=== PATIENT | male | born 1930 | race Caucasian/White ===

== ENCOUNTER 2018-03-16 20:46 | Emergency (ER) | payer OTHER ==
[~2018-03-16] VITALS: Ht 157.5 cm; Wt 68.0 kg
[2018-03-16 21:04] VITALS: Ht 157.5 cm; Wt 68.0 kg
[2018-03-16 21:27] LABS: BASOPHIL % 2.1 % (0-2); PLATELET COUNT 144 x10^3mcL (130-400); RED CELL DISTRIBUTION WIDTH 13.9 % (11.5-14.5)
[2018-03-16 21:41] LABS: CALCIUM 8.5 mg/dL (8.5-10.1); CARBON DIOXIDE 24.3 mmol/L (21-32); CHLORIDE SERUM 104 mmol/L (98-107); GLUCOSE SERUM 337 mg/dL (74-106); POTASSIUM SERUM 3.9 mmol/L (3.5-5.1); SODIUM SERUM 137 mmol/L (136-145)
[2018-03-16 21:45] LABS: ALKALINE PHOSPHATASE 98 U/L (46-116); ALT/SGPT 13 U/L (16-63); AST/SGOT 12 U/L (15-37); BILIRUBIN TOTAL 1.03 mg/dL (0.20-1.00); CHOLESTEROL 185 mg/dL (<200); HDL CHOLESTEROL 34 mg/dL (40-60); MAGNESIUM 1.8 mg/dL (1.8-2.4); TOTAL PROTEIN, SERUM 6.3 g/dL (6.4-8.2)
[2018-03-16 23:45] VITALS: BP 116/51
== END 2018-03-16 23:45 | disposition home or self-care (01) ==
LOC: ED 20:46
PROVIDERS: Emergency Medicine
DX: R51 Headache (principal); G47.00 Insomnia, unspecified; I10 Essential (primary) hypertension; E11.65 Type 2 diabetes mellitus with hyperglycemia; Z79.84 Long term (current) use of oral hypoglycemic drugs
CPT/HCPCS: 82962; J1200; J1885; J7030; Q0092

== ENCOUNTER 2018-07-04 05:20 | Inpatient (IN) | payer OTHER ==
[~2018-07-04] VITALS: Ht 160 cm; Wt 108.2 kg
[2018-07-04 06:40] LABS: BASOPHIL % 0.4 % (0-2); CALCIUM 8.4 mg/dL (8.5-10.1); CARBON DIOXIDE 28.6 mmol/L (21-32); CHLORIDE SERUM 105 mmol/L (98-107); CREATININE SERUM 0.9 mg/dL (0.7-1.3); GLUCOSE SERUM 70 mg/dL (74-106); PLATELET COUNT 183 x10^3mcL (130-400); POTASSIUM SERUM 3.8 mmol/L (3.5-5.1); SODIUM SERUM 142 mmol/L (136-145)
[2018-07-04 06:42] LABS: RED CELL DISTRIBUTION WIDTH 15.6 % (11.5-14.5)
[2018-07-04 06:54] LABS: CK-MB 1.3 ng/mL (0-3.6)
[2018-07-04 06:58] LABS: T3 TOTAL 1.2 ng/mL
[2018-07-04 07:02] LABS: ALKALINE PHOSPHATASE 147 U/L (46-116); ALT/SGPT 20 U/L (16-63); AST/SGOT 21 U/L (15-37); BILIRUBIN TOTAL 0.76 mg/dL (0.20-1.00); C REACTIVE PROTEIN 7.5 mg/dL (<=0.9)
[2018-07-04 08:03] LABS: FREE T4 1.26 ng/dL (0.76-1.46)
[2018-07-04 08:27] LABS: FREE THYROXINE INDEX 3.6 ug/dL (1.4-4.5); T4(THYROXINE) 9.7 ug/dL (4.7-13.3)
[2018-07-04] MEDS ORDERED: FREESTYLE LANC1 EACH (08:32)
[2018-07-04] MEDS ORDERED: FLO4 PO (08:32)
[2018-07-04] MEDS ORDERED: COLACE100 MG PO (08:32)
[2018-07-04] MEDS ORDERED: CELEXA10 MG PO (08:33)
[2018-07-04] MEDS ORDERED: NOR5 PO (08:33)
[2018-07-04] MEDS ORDERED: METOPROLOL TART25 M1 PO (08:33)
[2018-07-04] MEDS ORDERED: RESTORIL30 MG PO (08:34)
[2018-07-04] MEDS ORDERED: RESTORIL15 MG GT (08:34)
[2018-07-04] MEDS ORDERED: LEVEMIR FLEX100 U/M1 SC (08:34)
[2018-07-04] MEDS ORDERED: NOR10T (08:35)
[2018-07-04] MEDS ORDERED: RES30 PO (08:35)
[2018-07-04] MEDS ORDERED: TYLENOL EXTRA500 M3 PO (08:35)
[2018-07-04] MEDS ORDERED: LORAZEPAM0.5 MG PO (08:35)
[2018-07-04 08:43] LABS: ERYTHROCYTE SED RATE 40 mm/hr (0-20)
[2018-07-04 08:55] LABS: UA SPECIFIC GRAVITY 1.025 (1.005-1.035); microscopic required? YES; urine erythrocyte NEGATIVE (NEGATIVE)
[2018-07-04 09:53] VITALS: BP 143/57
[2018-07-04 10:58] VITALS: BP 143/57
[2018-07-04 13:05] VITALS: BP 133/76
[2018-07-04 16:51] VITALS: BP 151/60
[2018-07-04 19:15] VITALS: BP 158/66
[2018-07-05 05:48] VITALS: BP 156/82
[2018-07-05 07:48] LABS: PLATELET COUNT 187 x10^3mcL (130-400)
[2018-07-05 07:53] LABS: BASOPHIL % 0 % (0-2); RED CELL DISTRIBUTION WIDTH 15.7 % (11.5-14.5)
[2018-07-05 07:57] LABS: CARBON DIOXIDE 24.5 mmol/L (21-32); CHLORIDE SERUM 103 mmol/L (98-107); CREATININE SERUM 0.9 mg/dL (0.7-1.3); GLUCOSE SERUM 351 mg/dL (74-106); POTASSIUM SERUM 4.1 mmol/L (3.5-5.1); SODIUM SERUM 138 mmol/L (136-145)
[2018-07-05 08:00] VITALS: BP 124/69
[2018-07-05 12:15] VITALS: BP 156/74
[2018-07-05] MEDS ORDERED: PREDNISONE20 MG PO (12:56)
[2018-07-05] MEDS ORDERED: PREDNISONE10 MG PO (12:56)
[2018-07-05] MEDS ORDERED: ZIT250 PO (12:56)
[2018-07-05 13:14] VITALS: BP 156/74
[2018-07-07 09:18] VITALS: Ht 160 cm; Wt 108.2 kg
== END 2018-07-05 13:35 | disposition home or self-care (01) | DRG 202 ==
LOC: ED 05:20 → DU 08:32
PROVIDERS: Specialist; ADMIT General Practice
DX: J20.9 Acute bronchitis, unspecified (principal); E44.1 Mild protein-calorie malnutrition; E11.9 Type 2 diabetes mellitus without complications; I10 Essential (primary) hypertension; N40.0 Benign prostatic hyperplasia without lower urinary tract symptoms; Z22.322 Carrier or suspected carrier of Methicillin resistant Staphylococcus aureus
CPT/HCPCS: 36600; 82962; 84439; 87804; C9113; J0132; J0456; J1644; J2920; J7030; J7050; J7620; Q0092

== ENCOUNTER 2018-07-15 03:44 | Emergency (ER) | payer OTHER ==
[~2018-07-15 03:44] MED LIST: CELEXA10 MG PO; COLACE100 MG PO; FLO4 PO; FREESTYLE LANC1 EACH; LEVEMIR FLEX100 U/M1 SC; LORAZEPAM0.5 MG PO; METOPROLOL TART25 M1 PO; NOR10T; NOR5 PO; PREDNISONE10 MG PO; PREDNISONE20 MG PO; RES30 PO; RESTORIL15 MG GT; RESTORIL30 MG PO; TYLENOL EXTRA500 M3 PO; ZIT250 PO
[2018-07-15 04:36] LABS: BASOPHIL % 0.1 % (0-2); PLATELET COUNT 188 x10^3mcL (130-400)
[2018-07-15 04:38] LABS: RED CELL DISTRIBUTION WIDTH 14.9 % (11.5-14.5)
[2018-07-15 04:44] LABS: CALCIUM 8.8 mg/dL (8.5-10.1); CARBON DIOXIDE 30.7 mmol/L (21-32); CHLORIDE SERUM 104 mmol/L (98-107); CREATININE SERUM 0.9 mg/dL (0.7-1.3); GLUCOSE SERUM 90 mg/dL (74-106); POTASSIUM SERUM 3.6 mmol/L (3.5-5.1); SODIUM SERUM 139 mmol/L (136-145)
[2018-07-15 04:49] LABS: ALKALINE PHOSPHATASE 174 U/L (46-116); ALT/SGPT 17 U/L (16-63); AST/SGOT 23 U/L (15-37); BILIRUBIN TOTAL 0.54 mg/dL (0.20-1.00); TOTAL PROTEIN, SERUM 7.2 g/dL (6.4-8.2)
[2018-07-15 04:50] LABS: ALBUMIN 2.8 g/dL (3.4-5.0)
[2018-07-15 04:56] LABS: microscopic required? NO
[2018-07-15 05:01] VITALS: BP 116/56
[2018-07-15 05:09] LABS: UA SPECIFIC GRAVITY 1.015 (1.005-1.035); urine erythrocyte NEGATIVE (NEGATIVE)
== END 2018-07-15 08:59 | disposition home or self-care (01) ==
LOC: ED 03:44
PROVIDERS: Emergency Medicine
DX: M84.58XA Pathological fracture in neoplastic disease, other specified site, initial encounter for fracture (principal); C79.82 Secondary malignant neoplasm of genital organs; R91.8 Other nonspecific abnormal finding of lung field; D72.829 Elevated white blood cell count, unspecified; G89.29 Other chronic pain; I10 Essential (primary) hypertension; E11.9 Type 2 diabetes mellitus without complications
CPT/HCPCS: 36415

== ENCOUNTER 2018-08-09 11:22 | Inpatient (IN) | payer OTHER ==
[~2018-08-09] VITALS: Ht 165.1 cm; Wt 80.3 kg
[~2018-08-09 11:22] MED LIST changes: +LEVEMIR FLEX100 U/M1 INJ; -LEVEMIR FLEX100 U/M1 SC
[2018-08-09 12:01] LABS: CALCIUM 8.2 mg/dL (8.5-10.1); CARBON DIOXIDE 29.3 mmol/L (21-32); CHLORIDE SERUM 105 mmol/L (98-107); CREATININE SERUM 0.9 mg/dL (0.7-1.3); GLUCOSE SERUM 123 mg/dL (74-106); POTASSIUM SERUM 3.4 mmol/L (3.5-5.1); SODIUM SERUM 142 mmol/L (136-145)
[2018-08-09 12:10] LABS: BASOPHIL % 0 % (0-2); PLATELET COUNT 126 x10^3mcL (130-400); RED CELL DISTRIBUTION WIDTH 15.1 % (11.5-14.5)
[2018-08-09 12:11] LABS: ALKALINE PHOSPHATASE 163 U/L (46-116); ALT/SGPT 20 U/L (16-63); BILIRUBIN TOTAL 0.89 mg/dL (0.20-1.00); LIPASE 50 IU/L (73-393)
[2018-08-09 12:12] LABS: ALBUMIN 2.9 g/dL (3.4-5.0)
[2018-08-09 12:17] LABS: CK-MB 0.6 ng/mL (0-3.6)
[2018-08-09 12:31] LABS: AST/SGOT 22 U/L (15-37)
[2018-08-09] MEDS ORDERED: CELEXA40 MG PO (13:03)
[2018-08-09] MEDS ORDERED: RES30 PO (13:03)
[2018-08-09 14:13] LABS: CHOLESTEROL/HDL RATIO 2.7; MAGNESIUM 1.7 mg/dL (1.8-2.4)
[2018-08-09 14:21] LABS: FREE T4 1.22 ng/dL (0.76-1.46); FREE THYROXINE INDEX 2.9 ug/dL (1.4-4.5); T4(THYROXINE) 8.1 ug/dL (4.7-13.3)
[2018-08-09 14:44] LABS: T3 TOTAL 0.7 ng/mL
[2018-08-09 16:01] VITALS: BP 122/53
[2018-08-09 18:02] VITALS: Ht 165.1 cm; Wt 80.3 kg
[2018-08-09 18:14] LABS: UA SPECIFIC GRAVITY >=1.030 (1.005-1.035); microscopic required? YES; urine erythrocyte NEGATIVE (NEGATIVE)
[2018-08-09 21:39] VITALS: BP 128/63
[2018-08-10 00:30] VITALS: BP 128/63
[2018-08-10 04:01] LABS: BASOPHIL % 0.4 % (0-2)
[2018-08-10 04:08] LABS: PLATELET COUNT 126 x10^3mcL (130-400); RED CELL DISTRIBUTION WIDTH 14.9 % (11.5-14.5)
[2018-08-10 04:47] LABS: CARBON DIOXIDE 29.1 mmol/L (21-32); CHLORIDE SERUM 107 mmol/L (98-107); SODIUM SERUM 143 mmol/L (136-145)
[2018-08-10 04:58] LABS: GLUCOSE SERUM 53 mg/dL (74-106)
[2018-08-10 05:56] VITALS: BP 104/57
[2018-08-10 09:50] VITALS: BP 151/65
[2018-08-10 13:06] VITALS: BP 135/45
[2018-08-10 16:59] VITALS: BP 113/51
[2018-08-10 21:27] VITALS: BP 127/58
[2018-08-11 05:40] VITALS: BP 85/49
[2018-08-11 06:33] LABS: CALCIUM 7.9 mg/dL (8.5-10.1); CARBON DIOXIDE 27.3 mmol/L (21-32); CHLORIDE SERUM 99 mmol/L (98-107); CREATININE SERUM 1.2 mg/dL (0.7-1.3); GLUCOSE SERUM 388 mg/dL (74-106); POTASSIUM SERUM 4.4 mmol/L (3.5-5.1); SODIUM SERUM 132 mmol/L (136-145)
[2018-08-11 07:17] LABS: PLATELET COUNT 118 x10^3mcL (130-400)
[2018-08-11 08:56] VITALS: BP 136/52
[2018-08-11 10:31] LABS: BAND NEUTROPHIL 19 % (0-10); BASOPHIL 0 % (0-2); MONOCYTE 7 % (0-7); SEGMENTED NEUTROPHILS 67 % (37-75)
[2018-08-11 10:32] LABS: PLATELET MORPHOLOGY GIANT PLATELET SEEN; ovalocyte/elliptocyte 1+; rbc morphology (normal/abnorm) ABNORMAL (NORMAL); tear drop cell (dacryocyte) 1+
[2018-08-11 13:00] VITALS: BP 136/59
[2018-08-11 17:19] VITALS: BP 124/59
[2018-08-11 21:31] VITALS: BP 104/65
[2018-08-11 23:32] VITALS: BP 106/63
[2018-08-12 04:23] VITALS: BP 141/66
[2018-08-12 06:02] LABS: BASOPHIL % 0.2 % (0-2)
[2018-08-12 06:26] LABS: CALCIUM 7.9 mg/dL (8.5-10.1); CARBON DIOXIDE 28.7 mmol/L (21-32); CHLORIDE SERUM 101 mmol/L (98-107); CREATININE SERUM 0.8 mg/dL (0.7-1.3); GLUCOSE SERUM 88 mg/dL (74-106); POTASSIUM SERUM 3.6 mmol/L (3.5-5.1); SODIUM SERUM 138 mmol/L (136-145)
[2018-08-12 06:34] LABS: PLATELET COUNT 110 x10^3mcL (130-400); RED CELL DISTRIBUTION WIDTH 14.9 % (11.5-14.5)
[2018-08-12 08:39] VITALS: BP 141/75
[2018-08-12 13:04] VITALS: BP 119/60
[2018-08-12 17:05] VITALS: BP 145/71
[2018-08-13 06:27] VITALS: BP 146/65
[2018-08-13 09:08] VITALS: BP 120/56
[2018-08-13 13:54] VITALS: BP 153/78
[2018-08-13 14:27] VITALS: BP 153/78
[2018-08-13 17:25] VITALS: BP 128/65
[2018-08-13 21:12] VITALS: BP 136/71
[2018-08-14 05:49] VITALS: BP 148/88
[2018-08-14 07:29] LABS: BASOPHIL % 0.2 % (0-2); PLATELET COUNT 164 x10^3mcL (130-400); RED CELL DISTRIBUTION WIDTH 15.1 % (11.5-14.5)
[2018-08-14 07:39] LABS: CALCIUM 8.4 mg/dL (8.5-10.1); CARBON DIOXIDE 24.4 mmol/L (21-32); CHLORIDE SERUM 95 mmol/L (98-107); CREATININE SERUM 1.1 mg/dL (0.7-1.3); GLUCOSE SERUM 327 mg/dL (74-106); POTASSIUM SERUM 4.1 mmol/L (3.5-5.1); SODIUM SERUM 132 mmol/L (136-145)
[2018-08-14 10:02] VITALS: BP 137/56
[2018-08-14 12:25] VITALS: BP 135/60
[2018-08-14 17:38] VITALS: BP 146/68
[2018-08-14 21:03] VITALS: BP 127/73
[2018-08-15 05:22] VITALS: BP 115/70
[2018-08-15 09:41] VITALS: BP 105/60
[2018-08-15 13:24] VITALS: BP 112/67
[2018-08-15 17:00] VITALS: BP 138/55
[2018-08-15 19:51] VITALS: BP 124/56
[2018-08-16] VITALS (7 sets, daily range): BP systolic 127–155; BP diastolic 67–95
[2018-08-17 03:15] VITALS: BP 136/76
[2018-08-17 05:25] LABS: CALCIUM 8.4 mg/dL (8.5-10.1); CARBON DIOXIDE 30.5 mmol/L (21-32); CHLORIDE SERUM 100 mmol/L (98-107); CREATININE SERUM 1.3 mg/dL (0.7-1.3); GLUCOSE SERUM 416 mg/dL (74-106); MAGNESIUM 2.1 mg/dL (1.8-2.4); POTASSIUM SERUM 3.1 mmol/L (3.5-5.1); SODIUM SERUM 141 mmol/L (136-145)
[2018-08-17 05:38] LABS: BASOPHIL % 0.1 % (0-2); PLATELET COUNT 243 x10^3mcL (130-400)
[2018-08-17 05:48] LABS: RED CELL DISTRIBUTION WIDTH 15.3 % (11.5-14.5)
[2018-08-17 07:30] VITALS: BP 149/74
[2018-08-17 11:25] VITALS: BP 145/70
[2018-08-17 15:23] VITALS: BP 127/73
[2018-08-17 19:25] VITALS: BP 111/88
[2018-08-17 23:30] VITALS: BP 125/71
[2018-08-18 03:06] VITALS: BP 138/84
[2018-08-18 04:59] LABS: CALCIUM 8.5 mg/dL (8.5-10.1); CARBON DIOXIDE 35.2 mmol/L (21-32); CHLORIDE SERUM 103 mmol/L (98-107); CREATININE SERUM 1.3 mg/dL (0.7-1.3); GLUCOSE SERUM 344 mg/dL (74-106); MAGNESIUM 2.2 mg/dL (1.8-2.4); POTASSIUM SERUM 3.3 mmol/L (3.5-5.1); SODIUM SERUM 145 mmol/L (136-145)
[2018-08-18 05:26] LABS: BASOPHIL % 0.1 % (0-2); PLATELET COUNT 282 x10^3mcL (130-400); RED CELL DISTRIBUTION WIDTH 15.1 % (11.5-14.5)
[2018-08-18 08:00] VITALS: BP 135/71
[2018-08-18 12:00] VITALS: BP 109/64
[2018-08-18 16:00] VITALS: BP 112/64
[2018-08-18 17:58] VITALS: BP 125/61
[2018-08-18 20:34] VITALS: BP 128/71
[2018-08-19 06:18] VITALS: BP 108/60
[2018-08-19 07:14] LABS: BASOPHIL % 0.2 % (0-2); PLATELET COUNT 321 x10^3mcL (130-400)
[2018-08-19 07:15] LABS: CALCIUM 8.3 mg/dL (8.5-10.1); CARBON DIOXIDE 38.7 mmol/L (21-32); CHLORIDE SERUM 103 mmol/L (98-107); CREATININE SERUM 1.2 mg/dL (0.7-1.3); GLUCOSE SERUM 242 mg/dL (74-106); PHOSPHOROUS 3.7 mg/dL (2.5-4.9); POTASSIUM SERUM 3.2 mmol/L (3.5-5.1); RED CELL DISTRIBUTION WIDTH 14.9 % (11.5-14.5); SODIUM SERUM 149 mmol/L (136-145)
[2018-08-19 09:04] VITALS: BP 105/54
[2018-08-19 10:22] VITALS: BP 119/60
[2018-08-19 13:15] VITALS: BP 114/75
[2018-08-19 17:44] VITALS: BP 109/55
[2018-08-20 07:27] LABS: BASOPHIL % 0.3 % (0-2); PLATELET COUNT 288 x10^3mcL (130-400); RED CELL DISTRIBUTION WIDTH 14.7 % (11.5-14.5)
[2018-08-20 07:30] LABS: CALCIUM 7.9 mg/dL (8.5-10.1); CARBON DIOXIDE 38.4 mmol/L (21-32); CHLORIDE SERUM 100 mmol/L (98-107); CREATININE SERUM 1.2 mg/dL (0.7-1.3); GLUCOSE SERUM 286 mg/dL (74-106); POTASSIUM SERUM 3.4 mmol/L (3.5-5.1); SODIUM SERUM 143 mmol/L (136-145)
[2018-08-20 08:38] VITALS: BP 104/62
[2018-08-20 08:57] VITALS: BP 104/62
[2018-08-20 13:29] VITALS: BP 106/50
[2018-08-20 15:54] VITALS: BP 110/65
[2018-08-20 20:49] VITALS: BP 119/60
[2018-08-21 06:21] VITALS: BP 101/56
[2018-08-21 07:30] LABS: BASOPHIL % 0.3 % (0-2); PLATELET COUNT 257 x10^3mcL (130-400)
[2018-08-21 08:05] LABS: CALCIUM 7.8 mg/dL (8.5-10.1); CARBON DIOXIDE 34.2 mmol/L (21-32); CHLORIDE SERUM 100 mmol/L (98-107); CREATININE SERUM 1.2 mg/dL (0.7-1.3); GLUCOSE SERUM 273 mg/dL (74-106); MAGNESIUM 2.1 mg/dL (1.8-2.4); PHOSPHOROUS 3.2 mg/dL (2.5-4.9); POTASSIUM SERUM 3.5 mmol/L (3.5-5.1); SODIUM SERUM 142 mmol/L (136-145)
[2018-08-21 09:01] VITALS: BP 109/48
[2018-08-21 12:18] VITALS: BP 103/49
[2018-08-21 22:21] VITALS: BP 107/51
[2018-08-22 05:25] VITALS: BP 103/50
[2018-08-22 06:16] LABS: BASOPHIL % 0.3 % (0-2); PLATELET COUNT 265 x10^3mcL (130-400)
[2018-08-22 06:20] LABS: CALCIUM 7.8 mg/dL (8.5-10.1); CARBON DIOXIDE 37.6 mmol/L (21-32); CHLORIDE SERUM 104 mmol/L (98-107); CREATININE SERUM 1.2 mg/dL (0.7-1.3); GLUCOSE SERUM 155 mg/dL (74-106); MAGNESIUM 2.2 mg/dL (1.8-2.4); PHOSPHOROUS 3.2 mg/dL (2.5-4.9); POTASSIUM SERUM 3.3 mmol/L (3.5-5.1); SODIUM SERUM 145 mmol/L (136-145)
[2018-08-22 06:48] LABS: RED CELL DISTRIBUTION WIDTH 15.9 % (11.5-14.5)
[2018-08-22 10:00] VITALS: BP 116/68
[2018-08-22] MEDS ORDERED: CARDIZEM CD180 MG PO (12:35)
[2018-08-22] MEDS ORDERED: METOPROLOL SUCC50 M2 PO (12:35)
[2018-08-22] MEDS ORDERED: ASPIRIN ADULT L81 M5 PO (12:36)
[2018-08-22] MEDS ORDERED: AMIODARONE HCL100 MG PO (12:36)
[2018-08-22] MEDS ORDERED: PREDNISONE20 MG PO (12:36)
[2018-08-22] MEDS ORDERED: ZITHROMAX TRI-500 MG PO (12:37)
[2018-08-22 13:16] VITALS: BP 110/47
[2018-08-22 17:29] VITALS: BP 110/50
[2018-08-22 21:13] VITALS: BP 133/53
[2018-08-23 05:38] VITALS: BP 132/44
[2018-08-23 07:50] LABS: BASOPHIL % 0.1 % (0-2); PLATELET COUNT 224 x10^3mcL (130-400)
[2018-08-23 08:26] LABS: CALCIUM 7.6 mg/dL (8.5-10.1); CHLORIDE SERUM 101 mmol/L (98-107); CREATININE SERUM 1.1 mg/dL (0.7-1.3); GLUCOSE SERUM 101 mg/dL (74-106); POTASSIUM SERUM 3.6 mmol/L (3.5-5.1); SODIUM SERUM 139 mmol/L (136-145)
[2018-08-23 09:19] VITALS: BP 107/66
[2018-08-23 10:47] VITALS: BP 107/66
[2018-08-23 13:36] VITALS: BP 120/54
[2018-08-23 18:06] VITALS: BP 128/49
[2018-08-23 20:08] VITALS: BP 122/51
[2018-08-24 05:39] VITALS: BP 124/57
[2018-08-24 06:29] LABS: BASOPHIL % 0.3 % (0-2); PLATELET COUNT 209 x10^3mcL (130-400)
[2018-08-24 06:35] LABS: RED CELL DISTRIBUTION WIDTH 15.7 % (11.5-14.5)
[2018-08-24 06:55] LABS: CALCIUM 7.9 mg/dL (8.5-10.1); CARBON DIOXIDE 33.7 mmol/L (21-32); CHLORIDE SERUM 104 mmol/L (98-107); CREATININE SERUM 0.9 mg/dL (0.7-1.3); POTASSIUM SERUM 3.3 mmol/L (3.5-5.1); SODIUM SERUM 143 mmol/L (136-145)
[2018-08-24 07:25] LABS: GLUCOSE SERUM 54 mg/dL (74-106)
[2018-08-24 09:00] VITALS: BP 108/38
[2018-08-24 13:30] VITALS: BP 128/48
[2018-08-24 17:25] VITALS: BP 120/48
[2018-08-24 22:04] VITALS: BP 115/51
[2018-08-25 05:56] VITALS: BP 118/51
[2018-08-25 06:25] LABS: BASOPHIL % 0.3 % (0-2); PLATELET COUNT 205 x10^3mcL (130-400)
[2018-08-25 06:31] LABS: CALCIUM 7.9 mg/dL (8.5-10.1); CARBON DIOXIDE 33.8 mmol/L (21-32); CHLORIDE SERUM 105 mmol/L (98-107); CREATININE SERUM 0.9 mg/dL (0.7-1.3); GLUCOSE SERUM 211 mg/dL (74-106); POTASSIUM SERUM 4.1 mmol/L (3.5-5.1); SODIUM SERUM 141 mmol/L (136-145)
[2018-08-25 06:52] LABS: RED CELL DISTRIBUTION WIDTH 15.8 % (11.5-14.5)
[2018-08-25 09:33] VITALS: BP 130/50
[2018-08-25 13:13] VITALS: BP 109/58
[2018-08-25 16:48] VITALS: BP 119/63
[2018-08-25 20:52] VITALS: BP 124/54
[2018-08-25 22:20] VITALS: BP 125/45
[2018-08-26 05:48] VITALS: BP 123/47
[2018-08-26 06:46] LABS: BASOPHIL % 0.2 % (0-2); PLATELET COUNT 210 x10^3mcL (130-400)
[2018-08-26 06:50] LABS: RED CELL DISTRIBUTION WIDTH 15.7 % (11.5-14.5)
[2018-08-26 07:01] LABS: CALCIUM 7.9 mg/dL (8.5-10.1); CARBON DIOXIDE 30.8 mmol/L (21-32); CHLORIDE SERUM 104 mmol/L (98-107); CREATININE SERUM 0.8 mg/dL (0.7-1.3); GLUCOSE SERUM 96 mg/dL (74-106); POTASSIUM SERUM 4.1 mmol/L (3.5-5.1); SODIUM SERUM 140 mmol/L (136-145)
[2018-08-26 09:36] VITALS: BP 125/40
[2018-08-26 14:23] VITALS: BP 130/63
[2018-08-26 14:34] VITALS: BP 130/63
== END 2018-08-26 15:25 | DRG 177 ==
LOC: ED 11:22 → IC 13:08 → DU 13:08 → IC 08-16 15:00 → DU 08-18 17:17
PROVIDERS: Emergency Medicine; Internal Medicine; ADMIT General Practice
DX: J69.0 Pneumonitis due to inhalation of food and vomit (principal); I50.43 Acute on chronic combined systolic (congestive) and diastolic (congestive) heart failure; N17.0 Acute kidney failure with tubular necrosis; J96.01 Acute respiratory failure with hypoxia; E44.0 Moderate protein-calorie malnutrition; C79.51 Secondary malignant neoplasm of bone; C61 Malignant neoplasm of prostate; I11.0 Hypertensive heart disease with heart failure; I25.10 Atherosclerotic heart disease of native coronary artery without angina pectoris; E11.65 Type 2 diabetes mellitus with hyperglycemia; I35.0 Nonrheumatic aortic (valve) stenosis; I48.2 Chronic atrial fibrillation; E87.6 Hypokalemia; E83.51 Hypocalcemia; E83.42 Hypomagnesemia; Z68.31 Body mass index [BMI] 31.0-31.9, adult; Z87.891 Personal history of nicotine dependence; Z66 Do not resuscitate
CPT/HCPCS: 36600; 82962; 83880; 84439; 92526-GN; 92610; 94150; 97110-GP; 97112-GP; 97116-GP; 97530-GP; J0282; J1815; J1940; J2060; J2405; J2543; J2920; J3486; J3490; J7030; J7040; J7050; J7131; J7512; J7620; J7626; Q0092; Q0163